=== PATIENT | female | born 1940 | race Caucasian/White ===

== ENCOUNTER → 2017-02-14 | Outpatient (CLI) | payer OTHER ==
[~2017-02-14] VITALS: Ht 162.6 cm; Wt 90.7 kg
[~2017-02-14] MED LIST: ACEON PO; AMARYL2 MG PO; ASPIRIN EC325 M1 PO; BYSTOLIC 5 MG5 M1 PO; COMBIVENT INH; CRESTOR40 MG PO; DUONEB 2.5-0.5 M3 ML INH; LOVAZA1000 MG PO; NITROGLYCERIN0.4 MG SL; NORCO 5-325 TA1 EACH PO; PLAVIX 75 MG TA75 MG PO; PREDNISONE 10 M10 MG; PROTONIX40 M1 PO; PULMICORT FLE180 MCG IH; RANEXA500 MG PO; RESTORIL30 MG PO; VITAMIN B-12500 MCG PO; VITAMIN D1000 UNI1 PO
--- NOTE | ~2017-02-14 | CATHLAB ---
[facility] [place] [address] INVASIVE PROCEDURE REPORT Name: LIT MIMSDARRICK JOLANTA Room #: REG Gillian#: [id number] Admission: 02/14/17 Attend Phys: Derek Miller, Discharge: Date of : 44 Date of Service: 02/14/17 0911 Report #: [id number] THIS REPORT FOR: //name// CC: Riccardo Miller PROCEDURES: Left ventriculography, coronary angiography and abdominal aortography. DESCRIPTION OF PROCEDURE: The patient brought to the catheterization lab in stable condition. Right groin prepped and draped in sterile manner. Xylocaine 1% was used for local anesthesia. Versed was given for conscious sedation. A 6-Bengali sheath in the right femoral artery over the wire. Initially, a straight pigtail catheter performed a single GONZALEZ ventriculogram and an AP aortogram. FL4 for the left coronary system, FR4 for the right coronary system; multiple views and obliques were taken. The patient tolerated this well, without any hemodynamic compromise. The patient had multiple previous stents placed. There was evidence of only ojmb-iw-tevnedjn in-stent restenosis that looked to be little progression since the cath film from 2010. There was an eccentric proximal LAD lesion just off of the left main, but this looks to be due to some encroachment from a circumflex stent, I would say in the 60% to 70% range, but do not perceive that this has significantly progressed and the LAD does turn to diffusely diseased vessel. Mid distal segments are relatively small, briskly filling is noted. The circumflex is large and nondominant with mild disease. The dominant right is also mildly diseased. There is gwmp-wl-vyixdojx in-stent restenosis in all 3 vessels where there had been multiple previous stents placed, I believe 11 in total. I do not see a clear indication for intervention. The LV function is at lower limits of normal. A Mynx closure was utilized without complication. Her groin was stable. We did premedicate her with Benadryl and steroids. She feels well and will be recovered in the holding area until discharge here later today. HEMODYNAMICS: LV is 160/16. Aortic is 140/62. IMPRESSION: 1. Left main with mild disease, giving rise to left anterior descending and circumflex. 2. Left anterior descending with multiple previous stents, have emza-jt-mojvcxjs in-stent restenosis throughout and the mid distal segment is diffusely diseased vessel. Would not be amenable to intervention. The ostial left anterior descending looks to have a stent which extends from the circumflex into the left anterior descending with a moderate filling defect at the very ostial left anterior descending, but this looks very similar to the film of 2010, would be in the 60% to 70% range. Would not intervene into the. The circ obtuse marginal has xuik-rt-csmugchx in-stent restenosis and a large vessel. The right coronary artery also has uibl-py-jrrsgqsf in-stent restenosis and is [facility] [address] [place] [address] INVASIVE PROCEDURE REPORT Name: DARRICK BARRY Room #: REG SONIDO French#: [id number] Admission: 02/14/17 Attend Phys: Derek Miller, Discharge: Date of : 44 Date of Service: 02/14/17910 Report #: [id number] anatomically dominant and diffusely diseased. 3. Normal left ventricular size with subtle diffuse hypokinesis, EF in the 50% range. 4. Abdominal aorta is intact without aneurysm. Single renal arteries are patent. 5. Successful closure of the femoral artery with a Mynx closure device without complication. RECOMMENDATIONS: Aggressive risk factor modification. No lifting for 48 hours. No lying in tub, Jacuzzi or Doshi for a week. We will proceed with the scheduled nuclear stress test in March to evaluate for ischemia in the anterior wall, although I do not perceive that intervention is currently indicated here. I would be interested to see if there is ischemia noted. If any angina quite stable, continue this current regimen. No lifting for 48 hours. No lying in tub, Jacuzzi or Doshi for a week. <ELECTRONICALLY SIGNED> By: Derek Miller MD, FACC 02/15/17 0921 1435 Derek Miller MD, FACC /nt
[2017-02-14 07:18] VITALS: BP 133/67
== END ==
LOC: CATH 06:31
DX: I25.10 Atherosclerotic heart disease of native coronary artery without angina pectoris (principal)

== ENCOUNTER 2017-05-18 06:36 | Observation (INO) | payer OTHER ==
[~2017-05-18] VITALS: Ht 162.6 cm; Wt 89.9 kg
--- NOTE | ~2017-05-18 | EKG ---
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
--- NOTE | ~2017-05-18 | CATHLAB ---
[facility] Samantha [employer] [place] [address] INVASIVE PROCEDURE REPORT Name: LIT MIMSDARRICK JOLANTA Room #: 210-[facility] [place] .#: [id number] Admission: 05/18/17 Attend Phys: Derek Miller, Discharge: Date of : 44 Date of Service: 05/18/17 [facility] Report #: [id number] THIS REPORT FOR: //name// APPROVED REPORT Patient Details Patient Status: Out-Patient Room #: The patient is a 77 year-old female Event Personnel Derek Miller Scallop Binder, Crescencio Medina RN, Eloisa Trivedi RN RN, Anny Saul, Ganesh Villalbaub, Ijeoma Washington Procedures Performed Coronary Angiography Only [id number] JOSE , PTCA with Balloon Angioplasty Procedure Narrative The Right Groin^ was infiltrated with 1% Lidocaine subcutaneous anesthesia. A PINNACLE 6FR Sheath #[id number] sheath was inserted into the RFA^. Coronary angiography was performed using coronary diagnostic catheters. The right coronary system was accessed and visualized with a JR4 catheter. The left coronary system was accessed and visualized with a EBU 3.5 GUIDE catheter. Closure device was deployed with a 6 Fr MYNXGRIP 6/7F #[id number]. The patient tolerated the procedure well and there were no complications associated with the procedure. Intraoperative Conscious Sedation Sedation start time: 8:15 Case end Time: 8:45 Fentanyl 100.0 mcg Versed 1 mg Fluoro Time: 7.50 minutes Dose: DAP 4350.40 cGycm2 629 mGy Contrast Type and Amount: Visipaque 95 ml Hemodynamics The aortic pressure is 129/66 mmHg with a mean of 90 mmHg. PCI Technique Lesion Percutaneous coronary intervention was performed on the proximal left anterior descending artery segment. A LAUNCHER 6FR EBU 3.5 #[id number] Guide Catheter was used to engage the LCA ostium. A Luge Wire .014 x [facility] [address] [address] INVASIVE PROCEDURE REPORT Name: LIT MIMSDARRICK JOLANTA Room #: 210-P [facility] IN [facility].#: [id number] Admission: 05/18/17 Attend Phys: Derek Miller, Discharge: Date of : 44 Date of Service: 05/18/17 [facility] Report #: [id number] 182CM #[id number] Interventional Guidewire was used to cross the lesion. BALLOON DILATION A Balloon catheter Euphora NC RX 2.75 x 15 #[id number] was inserted and inflated up to 8.00atm for 11seconds. Additional Inflation: 16.00atm for 21seconds. Additional Inflation: 20.00atm for 21seconds. Conclusion #1 successful PTCA of ostial LAD utilizing noncompliant balloon to high pressure to deflect previously placed circumflex stent encroaching on the ostium final result was markedly improved with residual less than 20% does not appear to have changed flow into the ostium of the circumflex. #2 mild ostial left main disease giving rise to LAD and circumflex #3 multiple previously placed stents in the circumflex OM with mild to moderate restenosis 30 and 40% irregularities throughout nondominant #4 dominant right with multiple previously placed stents with moderate restenosis in the proximal lesion of 60% will follow Recommendations planned patient seems to have marked improvement in her LAD flow. There are previously placed 13 total stance elsewhere O previous cutting balloon and Breaky therapy. Would try to opt for no further mental placement here. I am hopeful that her symptoms will markedly improved here appeared to be significant encroachment of the circumflex stent into the ostial LAD. If further intervention will be indicated would need to restent left main LAD circumflex would be very complex. Continue medical therapy and dual antiplatelet therapy indefinitely. Patient is stable upon transfer back to CCU.Mynx closure was utilized without complication. <ELECTRONICALLY SIGNED> By: Derek Miller MD, FACC 05/18/17 1007 1007 1007 Derek Miller MD, FACC /INF
--- NOTE | ~2017-05-18 | EKG ---
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: GR : 1940 Requested By: Derek Miller Order Number: [id number] MD: Sarwat De La Vega Measurements Intervals [place] Rate: 72 P: -9 IA: 146 QRS: 71 QRSD: 93 T: 79 QT: 464 QTc: 508 Interpretive Statements Sinus rhythm Borderline low voltage, extremity leads Prolonged QT interval No previous ECG available for comparison Electronically Signed On 05-18-2017 18:28:51 CDT by Sarwat De La Vega [email or web address] <ELECTRONICALLY SIGNED> By: Sarwat De La Vega MD, [facility] 05/18/17 1828 00 00 Sarwat De La Vega MD, [facility] /EPI
--- NOTE | ~2017-05-18 | EKG ---
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[employer]: : 1940 Requested By: Derek Miller Order Number: [id number] MD: Sarwat De La Vega Measurements Intervals [place] Rate: 73 P: 66 SD: 140 QRS: 76 QRSD: 92 T: 89 QT: 471 QTc: 519 Interpretive Statements Sinus rhythm Prolonged QT interval Compared to ECG 05/18/2017 10:01:52 No significant changes Electronically Signed On 05-20-2017 9:07:27 CDT by Sarwat De La Vega [email or web address] <ELECTRONICALLY SIGNED> By: Sarwat De La Vega MD, [facility] [address] 3 3 Sarwat De La Vega MD, [facility] /EPI
[2017-05-18 07:10] VITALS: BP 130/67
[2017-05-18 07:19] LABS: HEMATOCRIT 37.7 % (37.0-47.0); HEMOGLOBIN 12.5 gm/dL (12.0-15.0); MCH 28.4 pg (26.0-34.0); MCV 86.1 fL (80.0-100.0); RBC 4.38 mil/uL (4.20-5.00); RDW 17.4 % (10.5-14.5); WBC 3.6 thou/uL (4.0-11.0)
[2017-05-18 07:26] LABS: CALCIUM 8.8 mg/dL (8.5-10.1); CREATININE 1.2 mg/dL (0.6-1.0); POTASSIUM 4.1 mmol/L (3.5-5.1)
[2017-05-18 09:30] VITALS: BP 102/64
[2017-05-18 10:59] VITALS: BP 108/69
[2017-05-18 12:00] VITALS: BP 123/62
[2017-05-18 15:27] VITALS: BP 128/59
[2017-05-18 20:13] VITALS: BP 105/53
[2017-05-19 00:02] VITALS: BP 116/65
[2017-05-19 04:47] VITALS: BP 107/61
[2017-05-19 05:29] LABS: HEMATOCRIT 32.9 % (37.0-47.0); HEMOGLOBIN 11.1 gm/dL (12.0-15.0); MCH 28.4 pg (26.0-34.0); MCHC 33.8 g/dL (28.0-37.0); RBC 3.91 mil/uL (4.20-5.00); RDW 16.8 % (10.5-14.5); WBC 4.6 thou/uL (4.0-11.0)
[2017-05-19 05:57] LABS: ANION GAP 10 mmol/L (7-16); BUN 15 mg/dL (7-18); CALCIUM 8.4 mg/dL (8.5-10.1); CHLORIDE 106 mmol/L (98-107); CK-MB MASS 0.7 ng/mL (<0.5-3.6); CO2 22 mmol/L (21-32); GLUCOSE 250 mg/dL (74-106); POTASSIUM 4.1 mmol/L (3.5-5.1); SODIUM 138 mmol/L (136-145); TROPONIN-I < 0.04 ng/mL (<0.04-0.07)
[2017-05-19 07:15] VITALS: BP 102/55
[2017-05-19] MEDS ORDERED: ASPIRIN EC325 M1 PO (07:46)
[2017-05-19 10:12] VITALS: BP 102/55
[2017-05-19 12:37] VITALS: BP 102/55
== END 2017-05-19 10:57 | disposition home or self-care (01) ==
LOC: CATH 06:36 → 2N 09:22 → CATH 11:11 → 2N 05-19 10:57
PROVIDERS: Internal Medicine Cardiovascular Disease
DX: I25.10 Atherosclerotic heart disease of native coronary artery without angina pectoris (principal); I10 Essential (primary) hypertension; R05 Cough; R06.09 Other forms of dyspnea; E78.00 Pure hypercholesterolemia, unspecified; J44.9 Chronic obstructive pulmonary disease, unspecified; Z72.89 Other problems related to lifestyle; Z87.891 Personal history of nicotine dependence; Z95.5 Presence of coronary angioplasty implant and graft

== ENCOUNTER 2018-03-12 16:05 | Inpatient (IN) | payer OTHER ==
[~2018-03-12] VITALS: Ht 162.6 cm; Wt 79.7 kg
--- NOTE | ~2018-03-12 | EKG ---
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 Handler: JAELYN : 1940 Requested By: Derek Miller Order Number: [id number] MD: Sarwat De La Vega Measurements Intervals [place] Rate: 59 P: 55 AL: 156 QRS: 69 QRSD: 90 T: 81 QT: 493 QTc: 489 Interpretive Statements Sinus bradycardia Borderline low voltage, extremity leads Borderline prolonged QT interval Compared to ECG 03/12/2018 16:11:54 Ectopic atrial rhythm no longer present Atrial premature complex(es) no longer present Electronically Signed On 03-15-2018 8:32:26 CDT by Sarwat De La Vega [email or web address] <ELECTRONICALLY SIGNED> By: Sarwat De La Vega MD, FACC 03/15/18 0832 0701 0701 Sarwat De La Vega MD, [facility] /EPI
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
--- NOTE | ~2018-03-12 | EKG ---
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: Kiran RODRIGUEZ : 1940 Requested By: Joo Hadley Order Number: [id number] MD: Matthew Figueroa Measurements Intervals [place] Rate: 72 P: -88 MI: 112 QRS: 61 QRSD: 90 T: 70 QT: 432 QTc: 473 Interpretive Statements Sinus or ectopic atrial rhythm Atrial premature complexes in couplets Borderline short MI interval Compared to ECG 05/19/2017 06:14:57 Ectopic atrial rhythm now present Atrial premature complex(es) now present Sinus rhythm no longer present Prolonged QT interval no longer present Electronically Signed On 03-12-2018 18:42:49 CDT by Matthew Figueroa [email or web address] <ELECTRONICALLY SIGNED> By: Matthew Figueroa MD 03/12/18 1842 10 10 Matthew Figueroa MD /EPI
[2018-03-12 16:07] VITALS: BP 137/62
[2018-03-12 16:25] LABS: ABSOLUTE NEUTROPHILS 4.8 thou/uL (1.4-8.2); HEMOGLOBIN 9.8 gm/dL (12.0-15.0); RDW 17.7 % (10.5-14.5); WBC 6.5 thou/uL (4.0-11.0)
[2018-03-12 16:27] LABS: BASOPHILS 0.8 % (0.0-2.0); EOSINOPHILS 1.1 % (0.0-3.0); HEMATOCRIT 29.6 % (37.0-47.0); LYMPHOCYTES 16.3 % (24.0-44.0); MCH 25.7 pg (26.0-34.0); MONOCYTES 8.7 % (1.0-8.0); PLATELET COUNT 422 thou/uL (150-400); POLYS 73.1 % (36.0-66.0); RBC 3.79 mil/uL (4.20-5.00)
[2018-03-12 16:33] LABS: ANION GAP 11 mmol/L (7-16); BUN 9 mg/dL (7-18); CHLORIDE 106 mmol/L (98-107); CO2 24 mmol/L (21-32); CREATININE 0.9 mg/dL (0.6-1.0); GLUCOSE 155 mg/dL (74-106); POTASSIUM 3.4 mmol/L (3.5-5.1); SODIUM 141 mmol/L (136-145)
[2018-03-12 16:41] LABS: TROPONIN-I < 0.04 ng/mL (<0.06)
[2018-03-12 18:22] VITALS: BP 126/69
[2018-03-12 18:23] VITALS: BP 133/53
[2018-03-12] MEDS ORDERED: ASPIR 8181 MG PO (22:45)
[2018-03-13] VITALS (7 sets, daily range): BP systolic 100–138; BP diastolic 45–76
[2018-03-13 04:32] LABS: ANION GAP 11 mmol/L (7-16); BUN 8 mg/dL (7-18); CALCIUM 8.3 mg/dL (8.5-10.1); CHLORIDE 108 mmol/L (98-107); CO2 23 mmol/L (21-32); CREATININE 0.7 mg/dL (0.6-1.0); GLUCOSE 97 mg/dL (74-106); POTASSIUM 3.4 mmol/L (3.5-5.1); SODIUM 142 mmol/L (136-145); TROPONIN-I < 0.04 ng/mL (<0.06)
[2018-03-13 04:42] LABS: HEMATOCRIT 26.7 % (37.0-47.0); HEMOGLOBIN 8.7 gm/dL (12.0-15.0); MCH 25.4 pg (26.0-34.0); MCHC 32.5 g/dL (28.0-37.0); MCV 78.2 fL (80.0-100.0); RBC 3.41 mil/uL (4.20-5.00); RDW 17.8 % (10.5-14.5); WBC 5.4 thou/uL (4.0-11.0)
[2018-03-14 03:45] VITALS: BP 124/3
[2018-03-14 07:25] VITALS: BP 120/39
[2018-03-14 13:45] VITALS: BP 134/95
[2018-03-14 15:30] VITALS: BP 143/66
[2018-03-14 20:00] VITALS: BP 98/47
[2018-03-15 02:52] LABS: HEMOGLOBIN 8.7 gm/dL (12.0-15.0); MCH 25.5 pg (26.0-34.0); MCHC 32.4 g/dL (28.0-37.0); MCV 78.7 fL (80.0-100.0); RBC 3.43 mil/uL (4.20-5.00); RDW 17.8 % (10.5-14.5); WBC 6.4 thou/uL (4.0-11.0)
[2018-03-15 03:04] LABS: CALCIUM 8.4 mg/dL (8.5-10.1); POTASSIUM 4.2 mmol/L (3.5-5.1)
[2018-03-15 04:00] VITALS: BP 108/47
[2018-03-15 07:36] VITALS: BP 90/47
[2018-03-15 10:42] LABS: % SATURATION 7 % (20-39); IRON 23 ug/dL (50-170); TIBC 321 ug/dL (250-450)
[2018-03-15 11:18] VITALS: BP 118/67
[2018-03-15 15:52] VITALS: BP 133/101
[2018-03-15 19:53] VITALS: BP 97/64
[2018-03-16 04:05] VITALS: BP 123/55
[2018-03-16 07:26] VITALS: BP 98/45
[2018-03-16 11:24] VITALS: BP 119/60
[2018-03-16 15:14] VITALS: BP 118/55
[2018-03-16 19:33] VITALS: BP 90/67
[2018-03-17 04:59] VITALS: BP 103/49
[2018-03-17 07:54] VITALS: BP 116/60
[2018-03-17 11:00] VITALS: BP 110/72
[2018-03-17] MEDS ORDERED: IMDUR 60 MG TAB60 M1 PO (15:05)
[2018-03-17 15:13] VITALS: BP 110/72
== END 2018-03-17 16:35 | disposition home or self-care (01) | DRG 391 ==
LOC: ER 16:05 → 2N 16:56 → EROBS 16:56 → 2N 18:21 → ENTRNSPT 03-17 15:23 → EDTRNSPTSTS 03-17 15:26 → 2N 03-17 16:35
PROVIDERS: Hospitalist; Internal Medicine Gastroenterology; Nurse Practitioner
PROC: 0DJD8ZZ Inspection of Lower Intestinal Tract, Via Natural or Artificial Opening Endoscopic (ICD-10-PCS; principal; 2018-03-16)
PROC: 0DJ08ZZ Inspection of Upper Intestinal Tract, Via Natural or Artificial Opening Endoscopic (ICD-10-PCS; principal; 2018-03-16)
DX: K22.4 Dyskinesia of esophagus (principal); E43 Unspecified severe protein-calorie malnutrition; R07.89 Other chest pain; K57.90 Diverticulosis of intestine, part unspecified, without perforation or abscess without bleeding; I10 Essential (primary) hypertension; I25.10 Atherosclerotic heart disease of native coronary artery without angina pectoris; J44.9 Chronic obstructive pulmonary disease, unspecified; M06.9 Rheumatoid arthritis, unspecified; E78.5 Hyperlipidemia, unspecified; E11.9 Type 2 diabetes mellitus without complications; K80.20 Calculus of gallbladder without cholecystitis without obstruction; D50.9 Iron deficiency anemia, unspecified; Z90.49 Acquired absence of other specified parts of digestive tract; Z90.710 Acquired absence of both cervix and uterus; Z88.0 Allergy status to penicillin; Z95.5 Presence of coronary angioplasty implant and graft; Z88.8 Allergy status to other drugs, medicaments and biological substances; Z91.041 Radiographic dye allergy status; Z87.891 Personal history of nicotine dependence; Z79.82 Long term (current) use of aspirin; Z79.899 Other long term (current) drug therapy; Z86.010 Personal history of colon polyps; Z68.30 Body mass index [BMI] 30.0-30.9, adult
CPT/HCPCS: 10081; 62110; 62900; 70005

== ENCOUNTER 2018-04-12 18:16 | Inpatient (IN) | payer OTHER ==
[~2018-04-12] VITALS: Ht 162.6 cm; Wt 80.2 kg
--- NOTE | ~2018-04-12 | 2DMMODE ---
[facility] [place] [address] 2 D/M-MODE ECHOCARDIOGRAM Name: DARRICK BARRY Room #: 207-P ADM IN M.R.#: [id number] Admission: 04/12/18 Attend Phys: Daniel Noe, Discharge: Date of : 44 Date of Service: 04/13/18 1007 Report #: [id number] THIS REPORT FOR: //name// APPROVED REPORT Study performed: 04/13/2018 08:37:02 EXAM: Comprehensive 2D, Doppler, and color-flow Echocardiogram Patient Location: Bedside Room #: 207 Status: routine BSA: 1.80 HR: 52 bpm BP: 119/52 mmHg Rhythm: NSR Other Information Study Quality: Adequate Indications Chest pain, elevated troponin. Hx: CAD, stents, HTN, HLP, DM, COPD 2D Dimensions RVDd: 29.38 mm LVEF(%): 50.15 (>50%) IVSd: 8.72 (7-11mm) LVOT Diam: 18.20 (18-24mm) LVDd: 47.93 mm PWd: 5.69 (7-11mm) Ascending Ao: 30.37 (22-36mm) LVDs: 35.72 (25-40mm) Aortic Root: 27.10 mm Pérez's LVEF: 50.15 % Volumes Left Atrial Volume (Systole) Single Plane 4CH: 25.21 mL Single Plane 2CH: 37.91 mL LA ESV Index: 19.00 mL/m2 Aortic Valve AoV Peak Luis.: 1.52 m/s AO Peak Gr.: 9.27 mmHg LVOT Max P.32 mmHg LVOT Max V: 1.26 m/s SEAN Vmax: 2.15 cm2 Mitral Valve E/A Ratio: 0.[address] [facility] [place] [address] 2 D/M-MODE ECHOCARDIOGRAM Name: DARRICK BARRY Room #: 207-P ADM IN M.R.#: [id number] Admission: 04/12/18 Attend Phys: Daniel Noe, Discharge: Date of : 44 Date of Service: 04/13/18 [facility][note 2] Report #: [id number] MV Decel. Time: 190.94 ms MV E Max Luis.: 0.63 m/s MV A Luis.: 0.72 m/s MV PHT: 55.37 ms IVRT: 106.11 ms Pulmonary Valve PV Peak Ulis.: 0.96 m/s PV Peak Gr.: 3.71 mmHg Pulmonary Vein P Vein S: 0.56 m/s P Vein D: 0.31 m/s P Vein S/D Ratio: 1.81 Tricuspid Valve RAP Estimate: 5.00 mmHg Left Ventricle The left ventricle is normal size. Regional wall motion is not well visualized but grossly normal. There is normal left ventricular wall thickness. Left ventricular systolic function is normal. LVEF is 50-55%. Mild diastolic dysfunction is present (impaired relaxation pattern). Right Ventricle The right ventricle is normal size. The right ventricular systolic function is normal. Atria The left atrium size is normal. The right atrium size is normal. Aortic Valve The aortic valve is sclerotic. Mild to moderate aortic regurgitation. There is no aortic valvular stenosis. Mitral Valve Mild mitral annular calcification Trace to mild mitral regurgitation. Tricuspid Valve The tricuspid valve is normal in structure. There is no tricuspid valve regurgitation noted. Unable to assess PA pressure. Pulmonic Valve The pulmonary valve is normal in structure. Trace pulmonic [facility] [address] [place] [address] 2 D/M-MODE ECHOCARDIOGRAM Name: DARRICK BARRY Room #: 207-P [facility] IN .R.#: [id number] Admission: 04/12/18 Attend Phys: Daniel Noe, Discharge: Date of : 44 Date of Service: 04/13/18 1007 Report #: [id number] regurgitation. Great Vessels The aortic root is normal in size. The ascending aorta is normal in size. IVC is normal in size and collapses >50% with inspiration. Pericardium There is no pericardial effusion. <Conclusion> Left ventricular systolic function is normal. Regional wall motion is not well visualized but grossly normal. LVEF is 50-55%. Mild diastolic dysfunction The aortic valve is sclerotic. Mild to moderate aortic regurgitation, no stenosis. Mild mitral annular calcification. Trace to mild mitral regurgitation. Pulmonary artery pressure could not be reliably ascertained There is no pericardial effusion. <ELECTRONICALLY SIGNED> By: Sarwat De La Vega MD, FACC 04/13/18 1007 1007 1007 Sarwat De La Vega MD, FACC /INF
--- NOTE | ~2018-04-12 | EKG ---
[address] [place] [address] ELECTROCARDIOGRAM REPORT Name: DARRICK BARRY Room #: 207-P DIS IN M.R.#: [id number] Admission: 04/12/18 Attend Phys: Daniel Noe DO Discharge: 04/16/18 Date of : 44 Report #: [id number] THIS REPORT FOR: //name// 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 : 1940 Requested By: Marybeth Ward Order Number: [id number] MD: Sarwat De La Vega Measurements Intervals [place] Rate: 57 P: 27 GA: 153 QRS: 70 QRSD: 102 T: 81 QT: 528 QTc: 515 Interpretive Statements Sinus bradycardia Low voltage, extremity leads Prolonged QT interval Compared to ECG 04/12/2018 21:23:48 No significant change was found Electronically Signed On 04-17-2018 9:02:38 CDT by Sarwat De La Vega [email or web address] <ELECTRONICALLY SIGNED> By: Sarwat De La Vega MD, [facility] 04/17/18 0902 0643 Sarwat De La Vega MD, [facility] /EPI
--- NOTE | ~2018-04-12 | H ---
[facility] [place] [address] HISTORY AND PHYSICAL Name: DARRICK BARRY Room #: 207-P ADM IN M.R.#: [id number] Admission: 04/12/18 Attend Phys: Daniel Noe, Discharge: Date of : 44 Report #: [id number] THIS REPORT FOR: //name// CC: FAM physician/PCP Daniel Noe DATE OF SERVICE: 04/12/2018 ATTENDING PHYSICIAN: Dr. Manriquez. PRIMARY CARE PHYSICIAN: Dr. Riccardo Schwab. CHIEF COMPLAINT: Chest pain. HISTORY OF PRESENT ILLNESS: The patient is a 78-year-old female who was sent as a direct admission from [facility] for left-sided chest pain. She does have a significant cardiac history and reports having at least 10-12 cardiac stents. She was just seen here at [facility] in February for chest pain. At that time, she had a negative stress test. They felt that this was possibly related to esophageal spasms. She underwent an EGD, which was negative. Ultrasound did show some cholelithiasis and she was supposed to plan an outpatient laparoscopic cholecystectomy with Surgery. She says this has not yet been scheduled because she has been feeling too poor since she was discharged. She says overall since February, she has been feeling very fatigued and she has been having some on and off episodes of chest pain. Today, she developed left-sided chest pain that radiated into her left shoulder blade and eventually down her left arm, this started around 9:00 a.m. The pain has been constant all day, but progressively got worse and seemed worse with exertion throughout the day. She also had some associated dizziness and shortness of breath. She took her aspirin at home. At [facility], they did give her a dose of nitro. She was transferred here and is still complaining of chest pain, rating it 6/10. She says this pain seems worse than the pain she experienced back in February when she was here for cardiac evaluation. Her initial troponin at [facility] was 0.165. She denies any recent illness such as cough, congestion, fevers, chills, nausea, vomiting. PAST MEDICAL HISTORY: Coronary artery disease, hypertension, hyperlipidemia, diabetes type 2, COPD, iron deficiency anemia, rheumatoid arthritis, B12 deficiency, depression. PAST SURGICAL HISTORY: Surgery for brain meningioma removal earlier this year, 10-12 cardiac stents as well as multiple PTCA, colon resection for diverticulitis, appendectomy, total abdominal hysterectomy with bilateral salpingo-oophorectomy, femoral artery repair due to trauma, Achilles surgery and parathyroidectomy. [address] [address] HISTORY AND PHYSICAL Name: DARRICK BARRY Room #: 207-P ADM IN M.R.#: [id number] Admission: 04/12/18 Attend Phys: Daniel Noe DO Discharge: Date of : 44 Report #: [id number] ALLERGIES: Include CONTRAST DYE, causes HIVES; PENICILLIN, HIVES; METFORMIN, SICK TO STOMACH and PAIN. HOME MEDICATIONS: DuoNeb q.i.d. p.r.n., iron 325 mg daily, Plavix 75 mg daily, Ranexa 1000 mg b.i.d., Crestor 40 mg daily, Imdur 60 mg daily, nitroglycerin p.r.n., Bystolic 4 mg daily, metoprolol 25 mg daily, aspirin 81 mg daily, oxycodone 5 mg q.6 hours p.r.n., Tylenol p.r.n., gabapentin 100 mg t.i.d., Lexapro 20 mg daily, temazepam 30 mg at bedtime p.r.n., Pulmicort 1 puff daily p.r.n., senna b.i.d., Protonix 40 mg daily, glimepiride 2 mg daily, vitamin B12 daily, thiamine daily, vitamin D weekly. SOCIAL HISTORY: The patient is an ex-smoker, having quit when she was in her 40s. Denies any alcohol or drug use. She currently lives at home alone, but her son has been staying with her ever since her spouse in September. She was in rehab for a while earlier this year after her brain meningioma surgery. REVIEW OF SYSTEMS: Twelve-point review of systems was reviewed with the patient, otherwise negative unless stated in the HPI. PHYSICAL EXAMINATION: GENERAL: The patient is an alert female, in no acute distress. VITAL SIGNS: Temperature is 36.6, heart rate 61, respirations 15, blood pressure 128/60, oxygen 99% on room air. HEENT: PERRLA. Sclerae nonicteric. Oral mucosa is pink and moist. NECK: Supple, no JVD noted. CARDIAC: Normal S1, S2. No murmurs, rubs or gallops. RESPIRATORY: Breath sounds are clear bilaterally. No wheezing or rhonchi. Breathing is nonlabored. ABDOMEN: Soft, nontender, nondistended with positive bowel sounds. VASCULAR: No peripheral edema noted. Pedal pulses are 2+. NEUROLOGIC: The patient is alert and oriented x 3. Speech is clear. She is moving all extremities equally. No focal neuro deficits noted. SKIN: Intact. No rashes or lesions. LABORATORY DATA AND DIAGNOSTICS: WBC is 7.0, hemoglobin 9.8, platelets 366. Sodium 141, potassium 4.1, BUN 10, creatinine 0.8, glucose 136. Magnesium 2.2. LFTs are within normal limits. INR 1.14. D-dimer is 575. Troponin is 0.165 and CK was 50. Chest x-ray showed no acute findings. There was atherosclerotic vascular disease, prior coronary stents. There are healed rib fractures and degenerative changes in the thoracic spine. ASSESSMENT AND PLAN: 1. Non-ST elevation myocardial infarction. Her repeat troponin has just come back at 3.96. We will go ahead and consult Cardiology to see if they want any further anticoagulation. She did receive aspirin and nitro. Continue to monitor on telemetry and defer further cardiac testing to Cardiology, who is [address] [address] HISTORY AND PHYSICAL Name: DARRICK BARRY Room #: 207-P ADM IN .R.#: [id number] Admission: 04/12/18 Attend Phys: Daniel Noe DO Discharge: Date of : 44 Report #: [id number] familiar with the patient. 2. Hypertension. Blood pressure is stable. Resume home medications and continue to monitor. 3. Diabetes type 2. Blood sugar was running low this evening. She states she has recently had to decrease her dose of Amaryl. We will follow Accu-Cheks and add sliding scale insulin. 4. Iron deficiency anemia. Her hemoglobin is improved since February of this year. No signs of bleeding. Continue iron daily. 5. Hyperlipidemia. Check a lipid panel and continue statin therapy. 6. Deep venous thrombosis prophylaxis, place sequential compression devices. We will continue to follow the patient closely throughout the hospitalization and make changes based on clinical status. <ELECTRONICALLY SIGNED> By: KILLIAN Casiano 04/13/18 1029 [id number] KILLIAN Casiano /nt
--- NOTE | ~2018-04-12 | EKG ---
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: Kathie LONGO : 1940 Requested By: Sushila Whitfield Order Number: [id number] MD: Sarwat De La Vega Measurements Intervals [place] Rate: 52 P: -8 NE: 138 QRS: 57 QRSD: 96 T: 74 QT: 510 QTc: 475 Interpretive Statements Sinus bradycardia Otherwise no significant abnormality Compared to ECG 03/15/2018 07:01:06 No significant change was found Electronically Signed On 04-13-2018 8:00:15 CDT by Sarwat De La Vega [email or web address] <ELECTRONICALLY SIGNED> By: Sarwat De La Vega MD, [facility] [id number] 22 Sarwat De La Vega MD, [facility] /EPI
--- NOTE | ~2018-04-12 | CATHLAB ---
[facility] [address] [place] [address] INVASIVE PROCEDURE REPORT Name: LIT MIMSDARRICK Room #: 207-P ADM IN .R.#: [id number] Admission: 04/12/18 Attend Phys: Daniel Noe, Discharge: Date of : 44 Date of Service: 04/15/18 1116 Report #: [id number] THIS REPORT FOR: //name// APPROVED REPORT Study performed: 04/14/2018 08:30:07 Patient Details Patient Status: In-Patient Room #: The patient is a 78 year-old female Event Personnel Derek Miller Toaster Element Repairer, Josephine Stahl, Ganesh Villalba Penny, Wes RN Procedures Performed Art Access - R femoral artery* 06400 Initial Mod Sed Same Phys/QHP Gr5y 530547 16310 Mod Sed Same Phys/QHP Ea 836376 Left Heart Cath w/or w/o Coronaries 9869725 C PTCA Single Vessel LAD 9347670 PCISINGLE Renal Bilateral Peripheral Angiography 8570726 CVRENALBIL Hemostasis w/ Mynx Indication Chest pain Procedure Narrative The patient was brought urgently to the Cardiac Catheterization Laboratory and was prepped and draped in a sterile manner. The Right Groin^ was infiltrated with 1% Lidocaine subcutaneous anesthesia. A PINNACLE 6FR Sheath #[id number] sheath was inserted into the RFA^. Coronary angiography was performed using coronary diagnostic catheters. The right coronary system was accessed and visualized with a JR 4 catheter. The left coronary system was accessed and visualized with a JL 4 catheter. The left ventricle was accessed and visualized with a Pigtail catheter. Left ventriculogram was performed in GONZALEZ projection. Closure device was deployed with a 6 Fr Mynx. The patient tolerated the procedure well and there were no complications associated with the procedure. There was no hematoma. Intraoperative Conscious Sedation Sedation start time: 09:10 Case end Time: 09:51 Fentanyl 100 mcg Versed 2 mg Fluoro Time: 4.28 minutes [facility] [place] [address] INVASIVE PROCEDURE REPORT Name: DARRICK BARRY Room #: 207-P [facility] IN ..#: [id number] Admission: 04/12/18 Attend Phys: Daniel Noe, Discharge: Date of : 44 Date of Service: 04/15/18 1116 Report #: [id number] Dose: DAP 4642.00 cGycm2 614 mGy Contrast Type and Amount: Omnipaque 140 ml IVUS Findings Euphora NC RX 2.75 x 6 #[id number] Hemodynamics The aortic pressure is 110/48 mmHg with a mean of 68 mmHg. The left ventricular pressure is 139/6 mmHg with a mean of mmHg. The left ventricular end diastolic pressure is 27 mmHg. PCI Technique Lesion Percutaneous coronary intervention was performed on the proximal left anterior descending artery segment. A LAUNCHER 6FR EBU 3.5 #[id number] Guide Catheter was used to engage the ostium. A Luge Wire .014 x 182CM #[id number] Interventional Guidewire was used to cross the lesion. BALLOON DILATION A Balloon catheter Euphora NC RX 2.5 x 6 #[id number] was inserted and inflated up to 24.00atm for 30seconds. Additional Inflation: 24.00atm for 40seconds. BALLOON DILATION A Balloon catheter Euphora NC RX 2.75 x 6 #999005 was inserted and inflated up to 24.00atm for 31seconds. Conclusion #1 successful PTCA of ostial LAD in-stent restenosis with placement of 2.75 x 6 noncompliant balloon taken to 24 ashley less than 10% residual and DENILSON grade 3 flow into a moderate DeLee diseased LAD #2 left main moderately disease giving rise to LAD and circumflex #3 circumflex OM also with extensive prior stents mild in-stent restenosis proximal mid and distal diffusely diseased no occlusive disease #4 dominant right also with proximal and mid vessel stents with mild restenosis diffuse distal disease in the PDA and IL dominant vessel. #5 left ventriculogram has inferior basilar hypokinesis EF 50% range. Indications and plan: Patient transfer back to CCU in stable condition. In-stent restenosis address with noncompliant balloon. Patient has a total of approximately 13 prior stents there does not appear to be high-grade disease otherwise noted here diffuse distal disease in that mid and distal LAD with moderate in-stent restenosis. [facility] [address] [place] [address] INVASIVE PROCEDURE REPORT Name: DARRICK BARRY Room #: 207-P [facility] IN M.R.#: [id number] Admission: 04/12/18 Attend Phys: Daniel Noe, Discharge: Date of : 44 Date of Service: 04/15/18 1116 Report #: [id number] No other targets for intervention at this time. Continue aggressive risk factor modification and dual antiplatelet therapy. There is not a better option for this ostial LAD this is a restenosis but have expanded with high pressure noncompliant balloon we'll follow closely <ELECTRONICALLY SIGNED> By: Derek Miller MD, FAC 04/15/18 1116 15 15 Derek Miller MD, FACC /INF
[~2018-04-12 18:16] MED LIST changes: +ASPIR 8181 MG PO; +IMDUR 60 MG TAB60 M1 PO
[2018-04-12 20:12] VITALS: BP 128/60
[2018-04-12] MEDS ORDERED: LEXAPRO20 MG PO (20:51)
[2018-04-12] MEDS ORDERED: TYLENOL325 MG PO (20:55)
[2018-04-12] MEDS ORDERED: AZELASTINE137 MCG/0. NS (21:00)
[2018-04-12] MEDS ORDERED: LUBRICANT EYE1 EACH OPHTHALMIC (21:04)
[2018-04-12] MEDS ORDERED: METOPROLOL SUCC25 M1 PO (21:07)
[2018-04-12] MEDS ORDERED: MUPIROCIN22 GM TOP (21:11)
[2018-04-12] MEDS ORDERED: OXYCODONE HCL 55 MG PO (21:12)
[2018-04-12] MEDS ORDERED: VITAMIN B-1100 M1 PO (21:13)
[2018-04-12] MEDS ORDERED: SENNA8.6 MG PO (21:13)
[2018-04-12] MEDS ORDERED: GABAPENTIN100 MG PO (21:45)
[2018-04-12] MEDS ORDERED: IRON325 PO (22:07)
[2018-04-12 22:21] LABS: HEMATOCRIT 31.4 % (37.0-47.0); HEMOGLOBIN 10.1 gm/dL (12.0-15.0); MCH 24.5 pg (26.0-34.0); MCHC 32.1 g/dL (28.0-37.0); MCV 76.2 fL (80.0-100.0); RBC 4.11 mil/uL (4.20-5.00); WBC 6.7 thou/uL (4.0-11.0)
[2018-04-12 22:33] LABS: PROTIME 10.7 Seconds (9.3-11.4)
[2018-04-13] VITALS (7 sets, daily range): BP systolic 96–119; BP diastolic 44–72
[2018-04-13 07:35] LABS: CHOLESTEROL 110 mg/dL (<200); HDL CHOLESTEROL 37 mg/dL (>40); LDL CHOLESTEROL 47 mg/dL (<100); TRIGLYCERIDE 130 mg/dL (<150); VLDL 26 mg/dL (<40)
[2018-04-13 08:07] LABS: ALBUMIN 3.1 g/dL (3.4-5.0); CALCIUM 8.8 mg/dL (8.5-10.1); CREATININE 0.8 mg/dL (0.6-1.0); POTASSIUM 3.8 mmol/L (3.5-5.1); TOTAL BILIRUBIN 0.4 mg/dL (<0.1-1.0); TOTAL PROTEIN 6.2 g/dL (6.4-8.2)
[2018-04-14] VITALS (9 sets, daily range): BP systolic 85–114; BP diastolic 42–63
[2018-04-14 05:32] LABS: ABSOLUTE NEUTROPHILS 3.6 thou/uL (1.4-8.2); BASOPHILS 0.9 % (0.0-2.0); EOSINOPHILS 4.1 % (0.0-3.0); HEMATOCRIT 28.1 % (37.0-47.0); HEMOGLOBIN 9.5 gm/dL (12.0-15.0); LYMPHOCYTES 29.3 % (24.0-44.0); MCH 24.7 pg (26.0-34.0); MCHC 33.6 g/dL (28.0-37.0); MCV 73.5 fL (80.0-100.0); MONOCYTES 7.2 % (1.0-8.0); PLATELET COUNT 323 thou/uL (150-400); POLYS 58.5 % (36.0-66.0); RBC 3.82 mil/uL (4.20-5.00); RDW 17.2 % (10.5-14.5); WBC 6.2 thou/uL (4.0-11.0)
[2018-04-14 05:52] LABS: CALCIUM 8.7 mg/dL (8.5-10.1); CREATININE 0.9 mg/dL (0.6-1.0); MAGNESIUM 1.9 mg/dL (1.8-2.4); POTASSIUM 3.5 mmol/L (3.5-5.1)
[2018-04-14 07:03] LABS: TSH 1.326 uIU/mL (0.358-3.740)
[2018-04-15 03:50] VITALS: BP 114/57
[2018-04-15 07:58] VITALS: BP 107/41
[2018-04-15 08:14] LABS: HEMATOCRIT 27.1 % (37.0-47.0); HEMOGLOBIN 8.9 gm/dL (12.0-15.0); MCH 24.5 pg (26.0-34.0); MCHC 32.9 g/dL (28.0-37.0); MCV 74.3 fL (80.0-100.0); RBC 3.65 mil/uL (4.20-5.00); RDW 17.4 % (10.5-14.5); WBC 5.9 thou/uL (4.0-11.0)
[2018-04-15 08:23] LABS: CALCIUM 8.8 mg/dL (8.5-10.1); CREATININE 0.9 mg/dL (0.6-1.0); POTASSIUM 3.9 mmol/L (3.5-5.1)
[2018-04-15 12:05] VITALS: BP 103/44
[2018-04-15 16:55] VITALS: BP 101/50
[2018-04-15 19:40] VITALS: BP 113/54
[2018-04-16 04:00] VITALS: BP 104/42
[2018-04-16 05:55] LABS: ABSOLUTE NEUTROPHILS 5.1 thou/uL (1.4-8.2); BASOPHILS 0.8 % (0.0-2.0); EOSINOPHILS 3.3 % (0.0-3.0); HEMATOCRIT 28.1 % (37.0-47.0); HEMOGLOBIN 9.4 gm/dL (12.0-15.0); LYMPHOCYTES 25.3 % (24.0-44.0); MCH 24.5 pg (26.0-34.0); MCHC 33.5 g/dL (28.0-37.0); MCV 73.2 fL (80.0-100.0); MONOCYTES 7.8 % (1.0-8.0); PLATELET COUNT 310 thou/uL (150-400); POLYS 62.8 % (36.0-66.0); RBC 3.84 mil/uL (4.20-5.00); RDW 17.7 % (10.5-14.5); WBC 8.2 thou/uL (4.0-11.0)
[2018-04-16 06:14] LABS: CALCIUM 8.6 mg/dL (8.5-10.1); POTASSIUM 3.7 mmol/L (3.5-5.1); TOTAL BILIRUBIN 0.3 mg/dL (<0.1-1.0); TOTAL PROTEIN 6.7 g/dL (6.4-8.2)
[2018-04-16 07:46] VITALS: BP 116/54
[2018-04-16 12:05] VITALS: BP 116/54
== END 2018-04-16 12:20 | disposition home or self-care (01) | DRG 246 ==
LOC: 2N 18:16
PROVIDERS: Hospitalist; Internal Medicine; Internal Medicine Geriatric Medicine; Nurse Practitioner Acute Care; Nurse Practitioner Adult Health; Nurse Practitioner Family
PROC: 4A023N7 Measurement of Cardiac Sampling and Pressure, Left Heart, Percutaneous Approach (ICD-10-PCS; principal; 2018-04-15)
PROC: 027034Z Dilation of Coronary Artery, One Artery with Drug-eluting Intraluminal Device, Percutaneous Approach (ICD-10-PCS; principal; 2018-04-15)
PROC: B2111ZZ Fluoroscopy of Multiple Coronary Arteries using Low Osmolar Contrast (ICD-10-PCS; principal; 2018-04-15)
PROC: B2151ZZ Fluoroscopy of Left Heart using Low Osmolar Contrast (ICD-10-PCS; principal; 2018-04-15)
DX: I21.4 Non-ST elevation (NSTEMI) myocardial infarction (principal); I50.33 Acute on chronic diastolic (congestive) heart failure; I25.10 Atherosclerotic heart disease of native coronary artery without angina pectoris; E78.5 Hyperlipidemia, unspecified; E11.9 Type 2 diabetes mellitus without complications; J44.9 Chronic obstructive pulmonary disease, unspecified; M06.9 Rheumatoid arthritis, unspecified; F32.9 Major depressive disorder, single episode, unspecified; E89.0 Postprocedural hypothyroidism; D50.9 Iron deficiency anemia, unspecified; K57.90 Diverticulosis of intestine, part unspecified, without perforation or abscess without bleeding; Z60.2 Problems related to living alone; D32.9 Benign neoplasm of meninges, unspecified; Z95.5 Presence of coronary angioplasty implant and graft; Z90.722 Acquired absence of ovaries, bilateral; Z90.49 Acquired absence of other specified parts of digestive tract; Z90.710 Acquired absence of both cervix and uterus; Z88.0 Allergy status to penicillin; Z88.8 Allergy status to other drugs, medicaments and biological substances; Z91.041 Radiographic dye allergy status; Z79.82 Long term (current) use of aspirin; Z79.899 Other long term (current) drug therapy; Z85.3 Personal history of malignant neoplasm of breast; Z92.3 Personal history of irradiation; Z87.891 Personal history of nicotine dependence; I11.0 Hypertensive heart disease with heart failure
CPT/HCPCS: 10081

== ENCOUNTER → 2019-12-17 | Outpatient (CLI) | payer OTHER ==
[~2019-12-17] MED LIST changes: +AZELASTINE137 MCG/0. NS; +GABAPENTIN100 MG PO; +IRON325 PO; +LEXAPRO20 MG PO; +LUBRICANT EYE1 EACH OPHTHALMIC; +METOPROLOL SUCC25 M1 PO; +MUPIROCIN22 GM TOP; +OXYCODONE HCL 55 MG PO; +SENNA8.6 MG PO; +TYLENOL325 MG PO; +VITAMIN B-1100 M1 PO
== END ==
LOC: SJCVC 10:28
DX: I25.10 Atherosclerotic heart disease of native coronary artery without angina pectoris (principal); I10 Essential (primary) hypertension; E78.2 Mixed hyperlipidemia; K21.9 Gastro-esophageal reflux disease without esophagitis; E78.00 Pure hypercholesterolemia, unspecified; E78.5 Hyperlipidemia, unspecified; E11.9 Type 2 diabetes mellitus without complications; Z85.3 Personal history of malignant neoplasm of breast; Z90.49 Acquired absence of other specified parts of digestive tract; Z79.899 Other long term (current) drug therapy; Z87.891 Personal history of nicotine dependence